=== PATIENT | female | born 1960 | race American Indian/Alaskan Native ===

== ENCOUNTER 2017-06-17 13:42 | Emergency (ER) | payer OTHER ==
[2017-06-17 13:53] VITALS: BP 173/84
[2017-06-17] MEDS ORDERED: TYLENOL PO ONE (14:25)
[2017-06-17] MEDS ORDERED: TORADOL IM ONE (17:25)
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
== END 2017-06-17 17:43 | disposition home or self-care (01) ==
LOC: ED 13:42
DX: M54.5 Low back pain (principal); I10 Essential (primary) hypertension
CPT/HCPCS: 96372; 99283; J1885